=== PATIENT | male | born 1980 | race Caucasian/White ===

== ENCOUNTER 2021-03-10 10:23 | Emergency (ER) | payer OTHER ==
[2021-03-10 10:45] VITALS: TEMP 98.5
[2021-03-10] MEDS ORDERED: LIDOCAINE 1% INJ 10MG/ML (20 ML MDV) SQ ONE (11:05)
[2021-03-10] MEDS ORDERED: BACITRACIN OINT 1 EACH PACKET TOPICAL ONE (11:05)
[2021-03-10] MEDS ORDERED: DIPH,PERTUS(ACELL)TETVAC-LF 0.5 ML VIAL IM ONE (11:05)
[2021-03-10] MEDS ORDERED: IBUPROFEN 600 MG TAB PO STA (11:08)
--- NOTE | 2021-03-10 11:10 | ED ---
Wound/Laceration HPI - General Chief Complaint: Wound/Laceration Stated Complaint: [facility] - leg lac Time Seen by Provider: 03/10/21 10:49 Source: patient Mode of arrival: ambulatory Limitations: no limitations - History of Present Illness Initial Comments: 40 year-old male patient presents to the emergency department for evaluation of left thigh laceration. Patient states he was using hedge trimmers to cut down some bushes when he slipped and the trimmers caught his leg. He denies significant pain to the area. Denies use of blood thinners. He was able to get the bleeding to stop. Denies any other injuries. He is unsure when his last tetanus vaccine was. He has not taken anything for pain. - Related Data Allergies Allergy/AdvReac Type Severity Reaction Status Date / Time No Known Allergies Allergy Verified 03/10/21 10:45 Review of Systems ROS Statement: Those systems with pertinent positive or pertinent negative responses have been documented in the HPI. ROS Other: All systems not noted in ROS Statement are negative. Past Medical History Past Medical History: No Reported History History of Any Multi-Drug Resistant Organisms: None Reported Past Surgical History: No Surgical Hx Reported Past Psychological History: No Psychological Hx Reported Smoking Status: Current every day smoker Past Alcohol Use History: Occasional Past Drug Use History: None Reported General Exam Limitations: no limitations General appearance: alert, in no apparent distress, other (This is a well- developed, well-nourished adult male patient in no acute distress.) Respiratory exam: Present: normal lung sounds bilaterally. Absent: respiratory distress, wheezes, rales, rhonchi, stridor Cardiovascular Exam: Present: regular rate, normal rhythm, normal heart sounds. Absent: systolic murmur, diastolic murmur, rubs, gallop, clicks Extremities exam: Present: full ROM, normal capillary refill, other (6cm left lateral thigh laceration. No active bleeding. Adipose tissue exposure.). Absent: tenderness, pedal edema, joint swelling, calf tenderness Neurological exam: Present: alert, oriented X3, CN II-XII intact Psychiatric exam: Present: normal affect, normal mood Skin exam: Present: warm, dry, intact, normal color. Absent: rash Course Vital Signs 03/10/21 03/10/21 10:43 12:05 Temperature 98.5 F Pulse Rate 99 89 Respiratory 24 18 Rate Blood Pressure 90/60 110/72 O2 Sat by Pulse 99 99 Oximetry Procedures - Laceration Laceration #1 Consent Obtained: verbal consent Indication: laceration Site: lower extremity (left thigh) Size (cm): 6 Description: linear Depth: simple, single layer Anesthetic Used: lidocaine 1% Anesthesia Technique: local infiltration Amount (mls): 7 Pre-repair: irrigated extensively Type of Sutures: nylon Size of Sutures: 4-0 Number of Sutures: 7 Technique: simple, interrupted Patient Tolerated Procedure: well, no complications Medical Decision Making - Medical Decision Making 32-year-old male patient presented for evaluation of left leg laceration. Physical examination revealed 6 cm laceration. Wound was cleansed and irrigated as documented. Adacel was given. He'll be discharged to follow-up with the employee health services as needed. He is instructed to return in 10 days to have stitches removed. He was educated regarding wound care and signs or symptoms of infection. He verbalizes understanding and agrees this plan. My attending is Dr. Mccormick. Disposition Clinical Impression: Laceration of left thigh Disposition: HOME SELF-CARE Condition: Good Instructions (If sedation given, give patient instructions): Care For Your Stitches (ED), Laceration (ED) Additional Instructions: Cleanse wound twice daily with warm water and antibacterial soap. Return in 10 days to have the stitches removed. Follow-up with employee health services as needed. Return for any new, worsening, or concerning symptoms. Is patient prescribed a controlled substance at d/c from ED?: No Referrals: None,Stated [Primary Care Provider] - 1-2 days Time of Disposition: 12:01
[2021-03-10 12:06] VITALS: BP 110/72; PULSE 89; RESP 18
== END 2021-03-10 12:06 | disposition home or self-care (01) ==
LOC: EC 10:23
DX: S71.112A Laceration without foreign body, left thigh, initial encounter (principal); F17.200 Nicotine dependence, unspecified, uncomplicated; W26.8XXA Contact with other sharp object(s), not elsewhere classified, initial encounter
CPT/HCPCS: 99282; 90471; 12002; 90715; J2001